=== PATIENT | female | born 1960 | race Caucasian/White ===

== ENCOUNTER 2016-05-18 15:42 | Observation (INO) | payer MEDICAID ==
[2016-05-18] MEDS ORDERED: ALBUTEROL2.5 MG/3 M PO (17:45)
[2016-05-18] MEDS ORDERED: ADVAIR 50028 BLISTE1 PO (17:46)
[2016-05-18] MEDS ORDERED: SPIRIVA18 MC1 PO (17:47)
[2016-05-18] MEDS ORDERED: VITAMIN D35000 UNI3 PO (17:48)
[2016-05-18] MEDS ORDERED: GLUCOPHAGE500 M3 PO (17:48)
[2016-05-18] MEDS ORDERED: POTASSIUM CHLO20 ME3 PO (17:48)
[2016-05-18] MEDS ORDERED: CYMBALTA60 M1 PO (17:49)
[2016-05-18] MEDS ORDERED: RISPERIDONE1 M1 PO (17:49)
[2016-05-18] MEDS ORDERED: ZOCOR40 M1 PO (17:50)
[2016-05-18] MEDS ORDERED: GUAIFENESIN200 M3 PO (17:51)
[2016-05-18] MEDS ORDERED: SYNTHROID50 MC1 PO (17:52)
[2016-05-18] MEDS ORDERED: AMITRIPTYLINE H50 M1 PO (17:52)
[2016-05-18] MEDS ORDERED: PERCOCET 10-321 EACH PO (17:52)
[2016-05-18] MEDS ORDERED: DEPAKOTE ER250 M1 PO (17:53)
[2016-05-18] MEDS ORDERED: GLIPIZIDE ER2.5 MG PO (17:53)
[2016-05-18] MEDS ORDERED: AMBIEN5 M1 PO (17:54)
[2016-05-18] MEDS ORDERED: LISINOPRIL10 M1 PO (17:54)
[2016-05-18] MEDS ORDERED: EVAC-U-GEN8.6 MG PO (17:55)
[2016-05-18] MEDS ORDERED: IMITREX100 M2 PO (17:55)
[2016-05-18] MEDS ORDERED: XANAX1 M1 PO (17:55)
[2016-05-18] MEDS ORDERED: RANITIDINE HCL150 M3 PO (17:56)
[2016-05-18] MEDS ORDERED: MELATONIN5 M5 PO (17:56)
[2016-05-18 19:13] LABS: ANION GAP 16 mmol/L (0-20); BLOOD UREA NITROGEN 11 mg/dl (6-24); CALCIUM 9.2 mg/dl (8.5-10.5); CARBON DIOXIDE-VENOUS 31 mmol/L (22-32); CHLORIDE 97 mmol/l (96-110); GLUCOSE 230 mg/dL (70-110); POTASSIUM 4.9 mmol/L (3.7-5.1); SODIUM 139 mmol/L (135-145); eGFR VALUE FOR BLACK 82 mL/Min
[2016-05-18 19:23] LABS: BASO % 0.2 % (0-2); EOS % 0.1 % (0-7); HCT-HEMATOCRIT 43.3 % (34.0-49.0); HGB-HEMOGLOBIN 13.9 gm/dl (12.0-15.5); IMMATURE GRANULOCYTES ABSOLUTE 0.02 tho/cmm (0-0.03); IMMATURE GRANULOCYTES PERCENT 0.2 % (0-0.3); LYMPH % 12.4 % (20-45); LYMPH ABSOLUTE COUNT 1.4 tho/cmm (0.8-4.5); MCH (MEAN CORPUSCULAR HGB) 29.3 pg (28.0-32.0); MCHC MEAN CORPUSCULAR HGB CONC 32.1 % (32.0-36.0); MCV (MEAN CELL VOLUME) 91.4 fl (82.0-96.0); MEAN PLATELET VOLUME 9.2 cmc (9.4-12.4); MONO % 0.5 % (0-12); MONOCYTE ABSOLUTE COUNT 0.1 tho/cmm (0.0-1.2); NEUTROPHIL ABSOLUTE COUNT 9.6 tho/cmm (1.6-8.0); NEUTROPHIL-AUTOMATED 9.6 tho/cmm (1.6-8.0); NEUTROPHILS % 86.6 % (40-80); PLATELET COUNT 323 tho/cmm (150-450); RED BLOOD COUNT 4.74 mil/cmm (4.00-5.20); RED CELL DISTRIBUTION WIDTH 13.1 % (12.4-16.4); WHITE BLOOD COUNT 11.1 tho/cmm (4.0-10.0)
[2016-05-19 03:43] LABS: BASO % 0.1 % (0-2); HCT-HEMATOCRIT 42.2 % (34.0-49.0); HGB-HEMOGLOBIN 13.4 gm/dl (12.0-15.5); IMMATURE GRANULOCYTES ABSOLUTE 0.02 tho/cmm (0-0.03); IMMATURE GRANULOCYTES PERCENT 0.2 % (0-0.3); LYMPH % 18.7 % (20-45); LYMPH ABSOLUTE COUNT 1.8 tho/cmm (0.8-4.5); MCH (MEAN CORPUSCULAR HGB) 29.5 pg (28.0-32.0); MCHC MEAN CORPUSCULAR HGB CONC 31.8 % (32.0-36.0); MCV (MEAN CELL VOLUME) 92.7 fl (82.0-96.0); MEAN PLATELET VOLUME 9.1 cmc (9.4-12.4); MONO % 0.7 % (0-12); MONOCYTE ABSOLUTE COUNT 0.1 tho/cmm (0.0-1.2); NEUTROPHIL ABSOLUTE COUNT 7.6 tho/cmm (1.6-8.0); NEUTROPHIL-AUTOMATED 7.6 tho/cmm (1.6-8.0); NEUTROPHILS % 80.3 % (40-80); PLATELET COUNT 302 tho/cmm (150-450); RED BLOOD COUNT 4.55 mil/cmm (4.00-5.20); RED CELL DISTRIBUTION WIDTH 13.3 % (12.4-16.4); WHITE BLOOD COUNT 9.5 tho/cmm (4.0-10.0)
[2016-05-19 04:09] LABS: ANION GAP 8 mmol/L (0-20); BLOOD UREA NITROGEN 14 mg/dl (6-24); C-REACTIVE PROTEIN 0.5 mg/dl (0-0.9); CALCIUM 8.5 mg/dl (8.5-10.5); CARBON DIOXIDE-VENOUS 34 mmol/L (22-32); CHLORIDE 101 mmol/l (96-110); CREATININE 0.65 mg/dl (0.50-1.10); GLUCOSE 183 mg/dL (70-110); POTASSIUM 5.4 mmol/L (3.7-5.1); SODIUM 138 mmol/L (135-145); eGFR VALUE FOR BLACK >90 mL/Min
[2016-05-19 10:11] LABS: URINE BILIRUBIN NEGATIVE (NEG); URINE BLOOD NEGATIVE (NEG); URINE GLUCOSE (UA) MODERATE (NEG); URINE KETONE SMALL (NEG); URINE LEUKOCYTE ESTERASE NEGATIVE (NEG); URINE NITRITE NEGATIVE (NEG); URINE PROTEIN SMALL (NEG); URINE SPECIFIC GRAVITY 1.025 (1.003-1.030)
[2016-05-19 10:14] LABS: URINE APPEARANCE CLEAR; URINE COLOR YELLOW
[2016-05-19 10:19] LABS: URINE RBC 0-2 /[HPF] (0-5); URINE WBC 0-2 /[HPF] (0-5)
[2016-05-19] MEDS ORDERED: GLIPIZIDE-METF1 EAC1 PO (10:33)
[2016-05-19 22:30] LABS: URINE BILIRUBIN NEGATIVE (NEG); URINE BLOOD NEGATIVE (NEG); URINE GLUCOSE (UA) SMALL (NEG); URINE KETONE SMALL (NEG); URINE LEUKOCYTE ESTERASE POSITIVE (NEG); URINE NITRITE NEGATIVE (NEG); URINE PROTEIN MODERATE (NEG); URINE SPECIFIC GRAVITY 1.025 (1.003-1.030)
[2016-05-19 22:31] LABS: URINE APPEARANCE CLOUDY; URINE COLOR YELLOW
[2016-05-19 22:37] LABS: URINE AMORPHOUS 1+; URINE BACTERIA 1+; URINE RBC RARE /[HPF] (0-5)
[2016-05-20 05:35] LABS: HCT-HEMATOCRIT 37.2 % (34.0-49.0); HGB-HEMOGLOBIN 11.4 gm/dl (12.0-15.5); IMMATURE GRANULOCYTES ABSOLUTE 0.02 tho/cmm (0-0.03); IMMATURE GRANULOCYTES PERCENT 0.2 % (0-0.3); LYMPH % 12.6 % (20-45); LYMPH ABSOLUTE COUNT 1.5 tho/cmm (0.8-4.5); MCH (MEAN CORPUSCULAR HGB) 29.3 pg (28.0-32.0); MCHC MEAN CORPUSCULAR HGB CONC 30.6 % (32.0-36.0); MCV (MEAN CELL VOLUME) 95.6 fl (82.0-96.0); MEAN PLATELET VOLUME 9.2 cmc (9.4-12.4); MONO % 2.2 % (0-12); MONOCYTE ABSOLUTE COUNT 0.3 tho/cmm (0.0-1.2); PLATELET COUNT 294 tho/cmm (150-450); RED BLOOD COUNT 3.89 mil/cmm (4.00-5.20); RED CELL DISTRIBUTION WIDTH 13.7 % (12.4-16.4); WHITE BLOOD COUNT 11.8 tho/cmm (4.0-10.0)
[2016-05-20 05:58] LABS: ANION GAP 12 mmol/L (0-20); CALCIUM 8.1 mg/dl (8.5-10.5); CARBON DIOXIDE-VENOUS 33 mmol/L (22-32); CHLORIDE 100 mmol/l (96-110); GLUCOSE 260 mg/dL (70-110); POTASSIUM 5.7 mmol/L (3.7-5.1); SODIUM 139 mmol/L (135-145); eGFR VALUE FOR BLACK 64 mL/Min
[2016-05-20 06:08] LABS: BLOOD UREA NITROGEN 35 mg/dl (6-24); CREATININE 1.11 mg/dl (0.50-1.10)
[2016-05-21 06:05] LABS: HCT-HEMATOCRIT 37.8 % (34.0-49.0); HGB-HEMOGLOBIN 11.4 gm/dl (12.0-15.5); IMMATURE GRANULOCYTES ABSOLUTE 0.05 tho/cmm (0-0.03); IMMATURE GRANULOCYTES PERCENT 0.5 % (0-0.3); MCH (MEAN CORPUSCULAR HGB) 28.9 pg (28.0-32.0); MCHC MEAN CORPUSCULAR HGB CONC 30.2 % (32.0-36.0); MCV (MEAN CELL VOLUME) 95.7 fl (82.0-96.0); MEAN PLATELET VOLUME 9.4 cmc (9.4-12.4); MONO % 1.9 % (0-12); MONOCYTE ABSOLUTE COUNT 0.2 tho/cmm (0.0-1.2); NEUTROPHIL ABSOLUTE COUNT 8.1 tho/cmm (1.6-8.0); NEUTROPHIL-AUTOMATED 8.1 tho/cmm (1.6-8.0); NEUTROPHILS % 86.6 % (40-80); PLATELET COUNT 307 tho/cmm (150-450); RED BLOOD COUNT 3.95 mil/cmm (4.00-5.20); RED CELL DISTRIBUTION WIDTH 13.7 % (12.4-16.4); WHITE BLOOD COUNT 9.4 tho/cmm (4.0-10.0)
[2016-05-21 06:33] LABS: ANION GAP 9 mmol/L (0-20); BLOOD UREA NITROGEN 35 mg/dl (6-24); CALCIUM 8.3 mg/dl (8.5-10.5); CARBON DIOXIDE-VENOUS 34 mmol/L (22-32); CHLORIDE 103 mmol/l (96-110); CREATININE 0.84 mg/dl (0.50-1.10); GLUCOSE 246 mg/dL (70-110); POTASSIUM 5.1 mmol/L (3.7-5.1); SODIUM 141 mmol/L (135-145); eGFR VALUE FOR BLACK 89 mL/Min
[2016-05-21] MEDS ORDERED: LEVAQUIN750 M1 PO (15:10)
[2016-05-21] MEDS ORDERED: ADVAIR 50028 BLISTE1 PO (15:10)
[2016-09-11] MEDS ORDERED: POLYETHYLENE G255 G1 PO (23:45)
[2016-09-11] MEDS ORDERED: LIPITOR40 M1 PO (23:46)
[2016-09-11] MEDS ORDERED: ALENDRONATE SOD70 M2 PO (23:48)
[2016-09-11] MEDS ORDERED: GLUCOPHAGE500 M3 PO (23:49)
[2016-09-22] MEDS ORDERED: ATROPINE SULFATE2 M1 SL (15:42)
[2016-09-22] MEDS ORDERED: MORPHINE S20 MG/1 M1 SL ×3 (15:44→15:46)
[2016-09-22] MEDS ORDERED: ACETAMINOPHEN650 MG PR (15:47)
[2016-09-22] MEDS ORDERED: ISOPTO TEARS15 M1 EACH EYE (15:48)
== END 2016-05-21 19:30 ==
LOC: 5WD 15:42
PROVIDERS: Family Medicine; Nurse Practitioner; ADMIT Internal Medicine
PROC: 05HF33Z Insertion of Infusion Device into Left Cephalic Vein, Percutaneous Approach (ICD-10-PCS; principal; 2016-05-19)
DX: J18.9 Pneumonia, unspecified organism (principal); J96.11 Chronic respiratory failure with hypoxia; E66.09 Other obesity due to excess calories; E11.9 Type 2 diabetes mellitus without complications; I10 Essential (primary) hypertension; E78.5 Hyperlipidemia, unspecified; F32.9 Major depressive disorder, single episode, unspecified; G89.29 Other chronic pain; E03.9 Hypothyroidism, unspecified; J44.9 Chronic obstructive pulmonary disease, unspecified; J96.92 Respiratory failure, unspecified with hypercapnia; M25.511 Pain in right shoulder; M54.2 Cervicalgia; M54.9 Dorsalgia, unspecified; Z23 Encounter for immunization; Z79.84 Long term (current) use of oral hypoglycemic drugs; Z79.899 Other long term (current) drug therapy; Z91.018 Allergy to other foods; Z87.891 Personal history of nicotine dependence; Z98.890 Other specified postprocedural states
CPT/HCPCS: C1751; G0008; G0378; J0456; J0696; J1650; J1815; J2270; J2930; J7030; J7050; J7512